=== PATIENT | male | born 1970 | race Caucasian/White ===

== ENCOUNTER 2023-05-05 07:45 | Emergency (ER) | payer SELFPAY ==
[2023-05-05 08:01] VITALS: BMI 20.9
[2023-05-05] MEDS ORDERED: TETRACAINE 0.5% HCL 0.6ML DROPPER.BOTTLE OU ONE (08:20)
[2023-05-05] MEDS ORDERED: TETRACAINE 0.5% OPHTH SOLN 2 ML BOTTLE ONE ×2 (08:23→08:34)
[2023-05-05] MEDS ORDERED: ACETAMINOPHEN 1000 MG/100 ML BAG IVPB ONE (08:33)
[2023-05-05] MEDS ORDERED: SODIUM CHLORIDE 0.9% 500 ML INFUS.BAG IV ONE (08:33)
[2023-05-05] MEDS ORDERED: METOCLOPRAMIDE HCL INJECTION 10 MG/2 ML VIAL IVPB ONE (08:33)
[2023-05-05] MEDS ORDERED: ACETAMINOPHEN INJECTION 100 ML IVPB ONE (08:36)
[2023-05-05] MEDS ORDERED: METOCLOPRAMIDE HCL INJECTION 10 MG/2 ML VIAL ONE (08:36)
[2023-05-05 09:01] LABS: INR 1.1 (0.83-1.09); PROTHROMBIN TIME (PATIENT) 12.7 SEC (9.7-13.0)
[2023-05-05 09:03] LABS: ACTIVATED PTT 29.4 SECONDS (25.2-36.5); BASO % 1.4 % (0-2.0); EOS % 3.5 % (0-4.5); HEMATOCRIT 39.4 % (35.4-49); HEMOGLOBIN 13.1 GM/dL (11.7-16.9); LYMPH % 25.3 % (8-40); MCH 27.8 pg (25.7-33.7); MCHC 33.2 g/dl (32.0-35.9); MEAN CELL VOLUME 83.8 fl (80-96); NEUT % 63.8 % (42.8-82.8); PLATELET COUNT 162 10^3/uL (134-434); RDW 18.1 % (11.9-15.9); WHITE BLOOD COUNT 5.7 K/mm3 (4.0-10.0)
[2023-05-05 09:11] LABS: POTASSIUM 4.2 mmol/L (3.5-5.1)
[2023-05-05 09:13] LABS: BLOOD UREA NITROGEN 12.2 mg/dL (7-18); CALCIUM 9.1 mg/dL (8.5-10.1)
[2023-05-05 09:14] LABS: ALBUMIN 3.7 g/dl (3.4-5.0); MAGNESIUM 2.2 mg/dL (1.8-2.4)
[2023-05-05 09:17] LABS: CREATININE 1.2 mg/dL (0.55-1.3)
[2023-05-05 09:19] LABS: BILIRUBIN,TOTAL 0.3 mg/dL (0.2-1); TOT PROT 6.5 g/dl (6.4-8.2)
[2023-05-05] MEDS ORDERED: KETOROLAC TROMETHAMINE 15 MG/ML VIAL IVPUSH ONE (09:49)
[2023-05-05] MEDS ORDERED: KETOROLAC TROMETHAMINE 60 MG/2 ML VIAL ONE (09:55)
[2023-05-05 11:32] VITALS: BP 128/78; PULSE 74; RESP 16; TEMP 98.3
== END 2023-05-05 11:39 | disposition home or self-care (01) ==
LOC: JER 07:45
PROC: 3E033NZ Introduction of Analgesics, Hypnotics, Sedatives into Peripheral Vein, Percutaneous Approach (ICD-10-PCS; principal; 2023-05-05)
PROC: 3E0333Z Introduction of Anti-inflammatory into Peripheral Vein, Percutaneous Approach (ICD-10-PCS; 2023-05-05)
PROC: 3E033GC Introduction of Other Therapeutic Substance into Peripheral Vein, Percutaneous Approach (ICD-10-PCS; 2023-05-05)
DX: R51.9 Headache, unspecified (principal); H53.71 Glare sensitivity; H57.11 Ocular pain, right eye
CPT/HCPCS: 36415; 70450-TC; 80053; 83735; 85025; 85610; 85730; 99284-25